=== PATIENT | male | born 1985 | race Caucasian/White ===

== ENCOUNTER 2016-08-05 05:41 | Emergency (ER) | payer BC | END 2016-08-05 06:20 | disposition home or self-care (01) | LOC: EDBD 05:41 → D.ER 05:41 | DX: M72.2 Plantar fascial fibromatosis (principal) ==

== ENCOUNTER 2018-08-29 08:21 | Emergency (ER) | payer BC ==
[~2018-08-29] VITALS: Ht 170.2 cm; Wt 120.5 kg
[2018-08-29 08:25] VITALS: Ht 170.2 cm; Wt 120.5 kg
[2018-08-29 08:47] LABS: BASOPHILS 0.2 % (0-2); EOSINOPHILS 0.9 % (0-7); HEMATOCRIT 44.8 % (42.0-54.0); HEMOGLOBIN 15.9 g/dL (13.5-17.5); IMMATURE GRANULOCYTES 0.4 % (0-5); LYMPHOCYTES 23.2 % (15-50); MCH 28.6 pg (26.0-34.0); MCHC 35.5 g/dL (31.0-37.0); MCV 80.7 fL (80.0-100.0); MEAN PLATELET VOLUME 9.8 fL (7.4-10.4); MONOCYTES 6.5 % (2-11); NEUTROPHILS 68.8 % (40-80); PLATELET COUNT 289 10x3/uL (130-400); RBC 5.55 10x6/uL (4.20-6.10); RDW 13.3 % (11.5-14.5); WBC 9.4 10x3/uL (4.8-10.8)
[2018-08-29 08:51] LABS: APPEARANCE CLEAR (CLEAR); BILIRUBIN NEGATIVE (NEGATIVE); COLOR STRAW (YELLOW); GLUCOSE NEGATIVE (NEGATIVE); KETONE NEGATIVE (NEGATIVE); NITRITE NEGATIVE (NEGATIVE); PROTEIN TRACE mg/dL (NEGATIVE); UROBILINOGEN NORMAL (NORMAL)
[2018-08-29 08:52] LABS: BACTERIA FEW /hpf (NONE SEEN); MUCUS >1+ /lpf (NONE SEEN)
[2018-08-29 09:18] LABS: ALKALINE PHOSPHATASE 67 U/L (46-116); ALT (SGPT) 60 U/L (10-68); BILIRUBIN - TOTAL 0.56 mg/dL (0.2-1.3); CALC OSMOLALITY 278 mosm/kg (275-300); CALCIUM 9.2 mg/dL (8.5-10.1); CHLORIDE - SERUM 102 mmol/L (98-107); GLUCOSE 90 mg/dL (74-106); POTASSIUM - SERUM 4.1 mmol/L (3.5-5.1); PROTEIN - SERUM 7.6 g/dL (6.4-8.2); SODIUM 139 mmol/L (136-145); UREA NITROGEN 14 mg/dL (7-18); eGFR NON AFRICAN AMERICAN > 90 mL/min (90-120)
[2018-08-29 09:21] LABS: AMYLASE - SERUM 36 U/L (25-115); LIPASE 96 U/L (73-393)
[2018-08-29 09:22] LABS: TROPONIN-I < 0.017 ng/mL (0.000-0.060)
[2018-08-29] MEDS ORDERED: ULTRAM50 MG PO (10:39)
[2018-08-29] MEDS ORDERED: FLOMAX0.4 MG PO (10:39)
[2018-08-29 10:53] VITALS: BP 140/803
== END 2018-08-29 10:56 | disposition home or self-care (01) ==
LOC: D.ER 08:21
PROVIDERS: Family Medicine
DX: R10.31 Right lower quadrant pain (principal); N20.0 Calculus of kidney